=== PATIENT | male | born 1950 | race Caucasian/White ===

== ENCOUNTER 2024-07-07 11:24 | Day surgery (SDC) | payer MEDICARE ==
[2024-07-07] MEDS ORDERED: dexAMETHasone sodium phosphate IJ ONE (11:25)
[2024-07-07] MEDS ORDERED: Sodium Chloride 0.9(Preservative Free) 10 ML IJ ONE (11:25)
[2024-07-07] MEDS ORDERED: LIDOCAINE HCL 1% 50 MG/5 ML VL IJ ONE (11:25)
[2024-07-07] MEDS ORDERED: propofoL IV ONE (13:40)
[2024-07-07] MEDS ORDERED: ROBINUL ONE (14:02)
--- NOTE | 2024-07-07 14:54 | XRAY ---
Indication: Right L3-L5 transforaminal ERICH. Intraoperative fluoroscopy was provided for 28 seconds. 3 digital spot image submitted for interpretation demonstrates posterior needle tips projecting over expected right L3 and L4 nerve roots. Small amount of contrast injected for needle tip placement. Correlate with intraoperative findings/report.
--- NOTE | 2024-07-07 14:56 | XRAY ---
Indication: Right piriformis injection. Intraoperative fluoroscopy was provided for 23 seconds. Single digital spot image submitted for interpretation demonstrates posterior needle tip projecting over right piriformis. Small amount of contrast injected for needle tip placement. Correlate with intraoperative findings/report.
--- NOTE | 2024-07-07 15:20 | XRAY ---
28 seconds of fluoroscopy was used in surgery for a right L3-L5 transforaminal ERICH.
--- NOTE | 2024-07-07 15:21 | XRAY ---
23 seconds of fluoroscopy was used in surgery for a right piriformis injection.
== END 2024-07-07 14:29 | disposition home or self-care (01) ==
LOC: SDC-PAIN 11:24
PROVIDERS: ATTEND Psychiatry & Neurology Pain Medicine
DX: M54.16 Radiculopathy, lumbar region (principal); M79.18 Myalgia, other site
CPT/HCPCS: 20552; 64483; 64484; 72100; 72170; 77002; 77003; 99100; J1100; J2704; Q9966